=== PATIENT | female | born 2000 | race American Indian/Alaskan Native ===

== ENCOUNTER 2019-03-19 00:50 | Emergency (ER) | payer OTHER ==
[2019-03-19 01:01] VITALS: BP 121/75
[2019-03-19 01:51] LABS: Bilirubin,Urine NEG (Negative); Blood,Urine NEG (Negative); Color,Urine Yellow (Yellow); Mucus,Urine 2+ /HPF; Protein,Urine <15 mg/dL mg/dL (Negative)
[2019-03-19 02:19] LABS: HCG Qualitative,Urine Negative (Negative)
== END 2019-03-19 04:59 | disposition left against medical advice (07) ==
LOC: ED 00:50
DX: R10.2 Pelvic and perineal pain (principal); Z53.21 Procedure and treatment not carried out due to patient leaving prior to being seen by health care provider
CPT/HCPCS: 81001; 81025